=== PATIENT | female | born 1965 | race African-American/Black ===

== ENCOUNTER 2017-01-14 10:29 | Emergency (ER) | payer OTHER ==
[2017-01-14] MEDS ORDERED: fentaNYL PF VIAL 100 MCG/2 ML VIAL IM ONE (11:15)
[2017-01-14 11:37] VITALS: BP 14/69
--- NOTE | 2017-01-14 11:48 | PHYS DOC ---
Past Medical History Past Medical History: Depression, High Cholesterol, Hypertension, Other Additional Past Medical Histor: neuropathy, chronic pain, degenerative disc disease, bone spurs Past Surgical History: Cholecystectomy, Hysterectomy, Tonsillectomy, Tubal ligation Additional Past Surgical Histo: NECK SURGERY Alcohol Use: None Drug Use: None Adult General Chief Complaint Chief Complaint: EARACHE/EAR PAIN HPI HPI Patient is a 51 year old female with history of depression, hypertension high cholesterol who presents today with moderate right ear canal pain that began 2 days ago. Patient denies any fever coughing or congestion. Patient denies swimming. Patient denies hearing loss. Review of Systems Review of Systems Constitutional: Denies fever or chills [] Eyes: Denies change in visual acuity, redness, or eye pain [] HENT: right ear canal pain Respiratory: Denies cough or shortness of breath [] Cardiovascular: No additional information not addressed in HPI [] Musculoskeletal: Denies back pain or joint pain [] Integument: Denies rash or skin lesions [] Neurologic: Denies headache, focal weakness or sensory changes [] Endocrine: Denies polyuria or polydipsia [] Current Medications Current Medications Current Medications Medications (Trade) Dose Ordered Sig/Koko Start Time Stop Time Status Last Admin Dose Admin Fentanyl Citrate (Fentanyl 2ml Vial) 50 mcg 1X ONCE 01/14/17 11:15 01/14/17 11:16 DC 01/14/17 11:42 50 MCG Allergies Allergies Allergies Coded Allergies Type Severity Reaction Last Updated Verified Penicillins Allergy Intermediate 03/09/14 No bupropion Allergy Intermediate 03/09/14 No hydrocodone Allergy Intermediate 03/09/14 No niacin Allergy Intermediate 03/09/14 No Physical Exam Physical Exam Constitutional: Well developed, well nourished, no acute distress, non-toxic appearance. [] HENT: Normocephalic, atraumatic, bilateral external ears normal, oropharynx moist, no oral exudates, nose normal. [] Left ear canal is narrowed. The ear canal is erythematous. The TM appears normal. Tragus is very painful on exam. Eyes: PERRLA, EOMI, conjunctiva normal, no discharge. [] Cardiovascular:Heart rate regular rhythm, no murmur [] Lungs & Thorax: Bilateral breath sounds clear to auscultation [] Skin: Warm, dry, no erythema, no rash. [] Back: No tenderness, no CVA tenderness. [] Extremities: No tenderness, no cyanosis, no clubbing, ROM intact, no edema. [] Neurologic: Alert and oriented X 3, normal motor function, normal sensory function, no focal deficits noted. [] Psychologic: Affect normal, judgement normal, mood normal. [] Current Patient Data Vital Signs Vital Signs Date Time Temp Pulse Resp B/P (MAP) Pulse Ox O2 Delivery O2 Flow Rate FiO2 01/14/17 11:37 98.4 115 18 93 Room Air 98.4 EKG EKG [] Radiology/Procedures Radiology/Procedures [] Course & Med Decision Making Course & Med Decision Making Pertinent Labs and Imaging studies reviewed. (See chart for details) Patient has right otitis externa. Discharged with oflaxacin. Follow-up with primary care doctor in 1-2 weeks. Dragon Disclaimer Dragon Disclaimer This electronic medical record was generated, in whole or in part, using a voice recognition dictation system. Departure Departure Impression: Primary Impression: Otitis externa of right ear Disposition: HOME, SELF-CARE Condition: STABLE Referrals: TONY ROSE MD (PCP) Follow-up with your doctor in 1-2 weeks Patient Instructions: Otitis Externa, [id number] Additional Instructions: You have right ear canal infection. Use the prescribed eardrops as ordered. Follow-up with your doctor next week. Come back to the ED symptoms worsen. Scripts Oxycodone/Apap 5-325 (PERCOCET 5-325 MG TABLET) 1 Each Tablet 1 TAB PO Q4-6HRS Y for PAIN, #10 TAB Prov: MERCEDEZ THOMSON APRN 01/14/17 Ofloxacin (OFLOXACIN) 5 Ml Drops 5 DROP EACH EAR BID, #10 ML Prov: MERCEDEZ THOMSON APRN 01/14/17 Problem Qualifiers Primary Impression: Otitis externa of right ear Otitis externa type: unspecified type Chronicity: acute Qualified Codes: H60.501 - Unspecified acute noninfective otitis externa, right ear MERCEDEZ THOMSON APRN Jan 14, 2017 11:48
[2017-01-14] MEDS ORDERED: OFLO5DRO7 EACH EAR (11:52)
[2017-01-14] MEDS ORDERED: OXYC-323 PO (11:52)
== END 2017-01-14 12:00 | disposition home or self-care (01) ==
LOC: ER 10:29
DX: H60.501 Unspecified acute noninfective otitis externa, right ear (principal); E78.00 Pure hypercholesterolemia, unspecified; F32.9 Major depressive disorder, single episode, unspecified; G89.29 Other chronic pain; I10 Essential (primary) hypertension; G62.9 Polyneuropathy, unspecified; Z90.49 Acquired absence of other specified parts of digestive tract; Z90.710 Acquired absence of both cervix and uterus; Z98.51 Tubal ligation status; Z88.1 Allergy status to other antibiotic agents; Z88.5 Allergy status to narcotic agent; Z88.8 Allergy status to other drugs, medicaments and biological substances
CPT/HCPCS: 96372; 99283; J3010

== ENCOUNTER 2017-03-09 23:26 | Observation (INO) | payer OTHER ==
[~2017-03-09] VITALS: Ht 170.2 cm; Wt 99.6 kg
[~2017-03-09 23:26] MED LIST: CLON1TAB PO; DULO20CA PO; ESOM20CA PO; LISI1TAB7 PO; LOVA20TA2 PO; NAPR500T PO; OFLO5DRO7 EACH EAR; OXYC-323 PO; PRAV40TA2 PO; TRAM100T PO
[2017-03-09] MEDS ORDERED: IV NORMAL SALINE 1000ML BAG 1,000 ML IV SCH (23:30)
[2017-03-09] MEDS ORDERED: ASPIRIN CHEWABLE 81 MG TABLET. PO ONE (23:45)
[2017-03-10 00:07] LABS: BASO # 0.1 x10^3/uL (0.0-0.2); BASO % 1 % (0-3); EOS % 1 % (0-3); HEMATOCRIT 42.3 % (36.0-47.0); HEMOGLOBIN 14.7 g/dL (12.0-15.5); LYMPH # 3.4 x10^3/uL (1.0-4.8); LYMPH % 41 % (24-48); MEAN CORPUSCULAR HEMOGLOBIN 31 pg (25-35); MEAN CORPUSCULAR HGB CONC 35 g/dL (31-37); MEAN CORPUSCULAR VOLUME 90 fL (79-100); MONO % 5 % (0-9); NEUT % 52 % (31-73); PLATELET COUNT 240 x10^3/uL (140-400); RED BLOOD COUNT 4.73 x10^6/uL (3.50-5.40); RED CELL DISTRIBUTION WIDTH 13.6 % (11.5-14.5); WHITE BLOOD COUNT 8.3 x10^3/uL (4.0-11.0)
[2017-03-10 00:18] LABS: INR 1.1 (0.8-1.1); PROTHROMBIN TIME PATIENT 13.4 SEC (11.7-14.0)
[2017-03-10 00:19] LABS: CALCIUM 8.8 mg/dL (8.5-10.1); GFR 70.7; POTASSIUM 3.7 mmol/L (3.5-5.1)
--- NOTE | 2017-03-10 00:22 | PHYS DOC ---
Past Medical History Past Medical History: Anxiety, Depression, Diabetes-Type II, High Cholesterol, Hypertension, Other Additional Past Medical Histor: chronic pain issues-arthritis Past Medical History Anxiety, insomnia Past Surgical History: Cholecystectomy, Hysterectomy, Tonsillectomy, Tubal ligation Additional Past Surgical Histo: neck surgery-cervical (Aug 2016) Smoking: Cigarettes Alcohol Use: None Drug Use: None Adult General Chief Complaint Chief Complaint: CHEST PAIN HPI HPI Patient is a 51 year old female who presents with chest pain. She states she was at home sitting at her table at 2245 PM when she felt chest heaviness in the middle of her chest. It radiated to her right arm. No shortness of air. Pain was an 8 at onset and hasn't 8 at arrival. This morning EMS was called to her home for chest pain at that time however it radiated down her left arm. She declined transport at that time. No recent travel. She has family history of a brother who had significant cardiac event. She has risk factors of tobacco use, hypertension, hyperlipidemia, diabetes. She is followed by [facility] of [facility] Review of Systems Review of Systems Constitutional: Denies fever or chills Eyes: Denies change in visual acuity, redness, or eye pain HENT: Denies nasal congestion or sore throat Respiratory: Denies cough or shortness of breath Cardiovascular: See history of present illness GI: Denies abdominal pain, nausea, vomiting, bloody stools or diarrhea : Denies dysuria or hematuria Musculoskeletal: Denies back pain or joint pain Integument: Denies rash or skin lesions Neurologic: Denies headache, focal weakness or sensory changes Endocrine: Denies polyuria or polydipsia Family History Family History Brother with heart disease Current Medications Current Medications Current Medications Medications (Trade) Dose Ordered Sig/Koko Start Time Stop Time Status Last Admin Dose Admin Aspirin (Children'S Aspirin) 324 mg 1X ONCE 03/09/17 23:45 03/09/17 23:46 DC 03/09/17 23:51 324 MG Nitroglycerin (Nitro-Bid Oint) 1 inch 1X ONCE 03/10/17 00:30 03/10/17 00:31 DC Sodium Chloride 1,000 ml @ 100 mls/hr Q10H 03/09/17 23:30 03/10/17 09:29 03/09/17 23:48 100 MLS/HR Allergies Allergies Allergies Coded Allergies Type Severity Reaction Last Updated Verified Penicillins Allergy Intermediate 03/09/14 No bupropion Allergy Intermediate 03/09/14 No hydrocodone Allergy Intermediate 03/09/14 No niacin Allergy Intermediate 03/09/14 No Physical Exam Physical Exam Constitutional: Well developed, well nourished, no acute distress, non-toxic appearance. HENT: Normocephalic, atraumatic, bilateral external ears normal, oropharynx moist, no oral exudates, nose normal. Eyes: PERRLA, EOMI, conjunctiva normal, no discharge. Neck: Normal range of motion, no tenderness, supple, no stridor. Cardiovascular:Heart rate regular rhythm, no murmur Lungs & Thorax: Bilateral breath sounds clear to auscultation Abdomen: Bowel sounds normal, soft, no tenderness, no masses, no pulsatile masses. Skin: Warm, dry, no erythema, no rash. Back: No tenderness, no CVA tenderness. Extremities: No tenderness, no cyanosis, no clubbing, ROM intact, no edema. Neurologic: Alert and oriented X 3, normal motor function, normal sensory function, no focal deficits noted. [] Psychologic: Affect normal, judgement normal, mood normal. Current Patient Data Vital Signs Vital Signs Date Time Temp Pulse Resp B/P (MAP) Pulse Ox O2 Delivery O2 Flow Rate FiO2 03/09/17 23:29 98.2 98 20 115/58 (77) 92 Room Air 98.2 Lab Values Laboratory Tests Test 03/09/17 23:59 White Blood Count 8.3 x10^3/uL (4.0-11.0) Red Blood Count 4.73 x10^6/uL (3.50-5.40) Hemoglobin 14.7 g/dL (12.0-15.5) Hematocrit 42.3 % (36.0-47.0) Mean Corpuscular Volume 90 fL (79-100) Mean Corpuscular Hemoglobin 31 pg (25-35) Mean Corpuscular Hemoglobin Concent 35 g/dL (31-37) Red Cell Distribution Width 13.6 % (11.5-14.5) Platelet Count 240 x10^3/uL (140-400) Neutrophils (%) (Auto) 52 % (31-73) Lymphocytes (%) (Auto) 41 % (24-48) Monocytes (%) (Auto) 5 % (0-9) Eosinophils (%) (Auto) 1 % (0-3) Basophils (%) (Auto) 1 % (0-3) Neutrophils # (Auto) 4.3 x10^3uL (1.8-7.7) Lymphocytes # (Auto) 3.4 x10^3/uL (1.0-4.8) Monocytes # (Auto) 0.4 x10^3/uL (0.0-1.1) Eosinophils # (Auto) 0.1 x10^3/uL (0.0-0.7) Basophils # (Auto) 0.1 x10^3/uL (0.0-0.2) Prothrombin Time 13.4 SEC (11.7-14.0) Prothrombin Time INR 1.1 (0.8-1.1) D-Dimer (Birgit) 0.30 ug/mlFEU (0.00-0.50) Sodium Level 141 mmol/L (136-145) Potassium Level 3.7 mmol/L (3.5-5.1) Chloride Level 102 mmol/L (98-107) Carbon Dioxide Level 25 mmol/L (21-32) Anion Gap 14 (6-14) Blood Urea Nitrogen 15 mg/dL (7-20) Creatinine 1.0 mg/dL (0.6-1.0) Estimated GFR (Cockcroft-Gault) 70.7 Glucose Level 118 mg/dL (70-99) H Calcium Level 8.8 mg/dL (8.5-10.1) Creatine Kinase 89 U/L (26-192) Creatine Kinase MB (Mass) 1.3 ng/mL (0.0-3.6) Creatine Kinase MB Relative Index 1.5 % (0-4) Troponin I Quantitative < 0.017 ng/mL (0.000-0.055) [id number]-Jhb-M-Type Natriuretic Peptide 12 pg/mL (0-124) Lipase 222 U/L (73-393) Laboratory Tests 03/09/17 23:59 Laboratory Tests 03/09/17 23:59 EKG EKG EKG interpreted by myself at 2331 PM. Normal sinus rhythm, rate 98. Left schulte axis. Nonspecific ST changes. No ST elevation. Radiology/Procedures Radiology/Procedures Chest x-ray interpreted by myself at 0015 AM. Shows normal cardiac silhouette, normal lung jones, no pleural effusions, no pneumothorax, no infiltrates. Course & Med Decision Making Course & Med Decision Making Evaluated patient upon arrival. Aspirin was given 324 mg here. Nitropaste to chest wall. Patient significant number risk factors. Differential diagnosis for chest pain includes but is not limited to: Pericarditis, myocarditis, endocarditis, pneumothorax, pneumonia, aortic dissection, esophageal spasm, esophagitis, peptic ulcer disease, acute coronary syndrome, mediastinitis, Boerhaave syndrome, musculoskeletal chest wall pain, costochondritis, intercostal strain, rib fracture, pulmonary contusion, pneumonitis, pleural effusion, pericardial effusion, pericardial tamponode, and pleurisy. PERC Criteria Assessment: Age > 50: YES HR > 100: YES 02 < 95%: YES H/o DVT/PE: No Recent trauma/surgery: No Hemoptysis No Exogenous Estrogen: No Unilateral Leg swelling: No Pretest probability > 15%: Less than 2% risk of PE. No further work up is necessary MACE Scoring: History: Highly suspicious (2 points); Moderately suspicious (1 point). Slightly suspicious (0 point). EKG: ST segment depression (2 points). Nonspecific repolarization disturbance ( 1 point). normal (0 point) Age: Greater than 65 (2 points), 65-45 (1 point); less than 45 years old (0 points). Risk factors:> 3 risk factors (2 points), 1-2 risk factors (one point), no risk factors (0 point). Troponin: > 2 times normal (2 points), 1-2 times normal (1 point) normal limits (0 point) Total score: ____5__ Score % pts MACE/n MACE Policy 0-3: 32% 1.9% 0.05% Discharge 4-6: 51% 413/3136 13% 1.3% Observation Risk management 7-10: 17% 518/1045 50% 2.8% Observation Treatment, CAGb 0040 AM: Discussion with the patient. She is extremely high risk she initially refused to stay. She did agree to stay with place a nicotine patch on her and gave her her clonazepam dose for tonight. Her daughters were in the room during this discussion. Dr. Antoine, hospitalist was paged at 0045 am and accepted patient. Patient was on cardiac telemetry. She was stable at time of admission. I have spoken with the patient and/or caregivers. I have explained the patient' s condition, diagnosis and treatment plan based on the information available to me at this time. I have answered the patient's and/or caregiver's questions and addressed any concerns. The patient and/or caregivers have as good an understanding of the patient's diagnosis, condition and treatment plan as can be expected at this point. The patient has been stabilized within the capability of the emergency department. The patient will be transported for further care and management or will be moved to an observation or inpatient service. I have communicated with the staff or medical practitioner taking over this patient's care. Dragon Disclaimer Dragon Disclaimer This electronic medical record was generated, in whole or in part, using a voice recognition dictation system. Departure Departure Impression: Primary Impression: Chest pain Additional Impression: Tobacco abuse Disposition: ADMITTED INPATIENT Admitting Physician: Elier Antoine Condition: STABLE Referrals: TONY ROSE MD (PCP) Problem Qualifiers Primary Impression: Chest pain Chest pain type: unspecified Qualified Codes: R07.9 - Chest pain, unspecified ABRAM CHASE MD Mar 10, 2017 00:21
[2017-03-10] MEDS: NITROGLYCERIN OINT 1 GM PACKET. TP ONE ×2 (00:30→00:42)
[2017-03-10 00:33] LABS: CKMB MASS 1.3 ng/mL (0.0-3.6)
[2017-03-10] MEDS ORDERED: ONDANSETRON PF 4 MG/2 ML VIAL. IV PRN ×2 (00:45→08:22)
[2017-03-10] MEDS ORDERED: MORPHINE SULFATE 4 MG/ML DISP.SYRIN. IV PRN (00:45)
[2017-03-10] MEDS ORDERED: clonazePAM 0.5 MG TABLET PO ONE (01:00)
[2017-03-10] MEDS ORDERED: NICOTINE 14MG PATCH. TD ONE (01:00)
[2017-03-10 02:00] VITALS: BP 109/74
[2017-03-10] MEDS ORDERED: AMIT10TA PO (02:42)
[2017-03-10] MEDS ORDERED: IBUP-1060 PO (02:42)
[2017-03-10] MEDS ORDERED: GLIM2TAB2 PO (02:42)
[2017-03-10] MEDS ORDERED: ACET500T68 PO (02:42)
[2017-03-10] MEDS ORDERED: CLON1TAB3 PO (02:42)
[2017-03-10] MEDS ORDERED: LISI1TAB5 PO (02:42)
[2017-03-10] MEDS ORDERED: GLIM1TAB2 PO (02:42)
[2017-03-10] MEDS ORDERED: DULO60CA6 PO (02:42)
[2017-03-10] MEDS ORDERED: PANT40TA5 PO (02:42)
[2017-03-10] MEDS ORDERED: LOVA40TA2 PO (02:42)
[2017-03-10 03:25] VITALS: BP 101/58
[2017-03-10 04:10] VITALS: BP 101/58
--- NOTE | 2017-03-10 06:07 | EKG ---
[facility] [address] [place] [address] Test Date: 2017-03-09 Test Time: 23:31:24 Pat Name: GAURI GUO Department: Room: 258 1 Gender: F [employer]: : 1965 Requested By: ABRAM CHASE Order Number: [id number] Reading MD: Fabrizio Merida Measurements Intervals [place] Rate: 98 P: -41 IA: 148 QRS: 0 QRSD: 88 T: 43 QT: 364 QTc: 467 Interpretive Statements SINUS RHYTHM NON-SPECIFIC ST/T CHANGES Electronically Signed On 03-14-2017 7:16:56 CDT by Fabrizio Merida
[2017-03-10 07:38] VITALS: BP 108/66
--- NOTE | 2017-03-10 07:41 | RAD ---
Chest x-ray Indication: Chest pain Technique: Portable AP upright chest plane from Comparison: Previous study from 09/03/2011 Findings: Heart is normal in size. Lungs are clear. Calcified granuloma in the right lung apex. No pneumothorax or pleural effusion. Visualized bony thorax is within normal limits. Cervical fusion changes noted in the lower cervical spine. Impression: No acute cardiopulmonary process.
[2017-03-10] MEDS ORDERED: NICOTINE 21MG PATCH. TD PRN (08:30)
[2017-03-10] MEDS ORDERED: ACETAMINOPHEN 500 MG TABLET PO PRN ×2 (08:30)
[2017-03-10] MEDS ORDERED: DEXTROSE 50% 25 GM / 50ML DISP.SYRIN. IV PRN (08:30)
[2017-03-10] MEDS ORDERED: IBUPROFEN 400 MG TABLET. PO PRN (08:45)
--- NOTE | 2017-03-10 08:53 | PDOC2 ---
EVANS AYALA GRAVE DIGGER 03/10/17 0853: CARDIAC CONSULT DATE OF CONSULT Date of Consult DATE: 03/10/17 TIME: 08:42 REASON FOR CONSULT Reason for Consult: CP REFERRING PHYSICIAN Referring Physician: Austen SOURCE Source: Chart review, Patient HISTORY OF PRESENT ILLNESS HISTORY OF PRESENT ILLNESS This is a pleasant 51 yo female admitted for complains of chest pain. Reports that last night while sitting up she started having midchest heavy pressure that radiated to her right arm. Reports of nausea but no SOA, palpitations. Denies any frequent dizziness or CP prior to this episode and no REYES. Reports of no CAD, VTE, falls, or any recent injury. Presently no complains. She does have GERD in which she takes PPI but only intermittently and takes high dose ibuprofen almost everyday. She believes this is just all anxiety since her Klonopin was not refilled. She had recent neck fusion and tolerated it well, no prior stress test. Denies any daily ASA. PAST MEDICAL HISTORY Cardiovascular: HTN, Hyperlipidemia Pulmonary: Pneumonia CENTRAL NERVOUS SYSTEM: Other (No pertinent history) GI: GERD Heme/Onc: No pertinent hx Hepatobiliary: No pertinent hx Psych: Anxiety, Depression Musculoskeletal: Osteoarthritis, Other (piriformins syndrome) Rheumatologic: No pertinent hx Infectious disease: No pertinent hx ENT: Other (otitis externa) Renal/: No pertinent hx Endocrine: Diabetes (2) Dermatology: No pertinent hx PAST SURGICAL HISTORY Past Surgical History: Cholecystectomy, Tubal Ligation, Tonsillectomy, Hysterectomy, Other (neck surgery) FAMILY HISTORY Family History: Coronary Artery Disease (brother with premature CAD) SOCIAL HISTORY Smoke: 1 pack per day (>30 yrs) ALCOHOL: none Drugs: None Lives: with Family CURRENT MEDICATIONS CURRENT MEDICATIONS Current Medications Medications (Trade) Dose Ordered Sig/Koko Route PRN Reason Start Time Stop Time Status Last Admin Dose Admin Sodium Chloride 1,000 ml @ 100 mls/hr Q10H IV 03/09/17 23:30 03/10/17 09:29 03/09/17 23:48 Aspirin (Children'S Aspirin) 324 mg 1X ONCE PO 03/09/17 23:45 03/09/17 23:46 DC 03/09/17 23:51 Clonazepam (KlonoPIN) 1 mg 1X ONCE PO 03/10/17 01:00 03/10/17 01:01 DC 03/10/17 00:59 Nicotine (Nicoderm Cq 14mg) 1 patch 1X ONCE TD 03/10/17 01:00 03/10/17 01:01 DC 03/10/17 01:01 ALLERGIES ALLERGIES: Coded Allergies: Penicillins (Verified Allergy, Intermediate, 03/10/17) bupropion (Verified Allergy, Intermediate, 03/10/17) hydrocodone (Verified Allergy, Intermediate, 03/10/17) niacin (Verified Allergy, Intermediate, 03/10/17) ROS Review of System 14 point ROS evaluated with pertinent positives noted per HPI PHYSICAL EXAM General: Alert, Oriented X3, Cooperative, No acute distress HEENT: Atraumatic, Mucous membr. moist/pink Lungs: Clear to auscultation, Normal air movement Heart: Regular rate (SR), Normal S1, Normal S2, No murmurs Abdomen: Soft, No tenderness Extremities: No cyanosis, Other (trace LE edema) Skin: No breakdown, No significant lesion Neuro: Normal speech, Sensation intact Psych/Mental Status: Mental status NL, Mood NL MUSCULOSKELETAL: Osteoarthritic changes both hands VITALS VITALS Vital Signs Date Time Temp Pulse Resp B/P (MAP) Pulse Ox O2 Delivery O2 Flow Rate FiO2 03/10/17 07:38 97.9 88 18 108/66 (80) 97 Room Air 97.9 LABS Lab: Laboratory Tests Test 03/09/17 23:59 03/10/17 07:08 03/10/17 07:40 White Blood Count 8.3 x10^3/uL (4.0-11.0) Red Blood Count 4.73 x10^6/uL (3.50-5.40) Hemoglobin 14.7 g/dL (12.0-15.5) Hematocrit 42.3 % (36.0-47.0) Mean Corpuscular Volume 90 fL (79-100) Mean Corpuscular Hemoglobin 31 pg (25-35) Mean Corpuscular Hemoglobin Concent 35 g/dL (31-37) Red Cell Distribution Width 13.6 % (11.5-14.5) Platelet Count 240 x10^3/uL (140-400) Neutrophils (%) (Auto) 52 % (31-73) Lymphocytes (%) (Auto) 41 % (24-48) Monocytes (%) (Auto) 5 % (0-9) Eosinophils (%) (Auto) 1 % (0-3) Basophils (%) (Auto) 1 % (0-3) Neutrophils # (Auto) 4.3 x10^3uL (1.8-7.7) Lymphocytes # (Auto) 3.4 x10^3/uL (1.0-4.8) Monocytes # (Auto) 0.4 x10^3/uL (0.0-1.1) Eosinophils # (Auto) 0.1 x10^3/uL (0.0-0.7) Basophils # (Auto) 0.1 x10^3/uL (0.0-0.2) Prothrombin Time 13.4 SEC (11.7-14.0) Prothromb Time International Ratio 1.1 (0.8-1.1) D-Dimer (Birgit) 0.30 ug/mlFEU (0.00-0.50) Sodium Level 141 mmol/L (136-145) Potassium Level 3.7 mmol/L (3.5-5.1) Chloride Level 102 mmol/L (98-107) Carbon Dioxide Level 25 mmol/L (21-32) Anion Gap 14 (6-14) Blood Urea Nitrogen 15 mg/dL (7-20) Creatinine 1.0 mg/dL (0.6-1.0) Estimated GFR (Cockcroft-Gault) 70.7 Glucose Level 118 mg/dL (70-99) Calcium Level 8.8 mg/dL (8.5-10.1) Creatine Kinase 89 U/L (26-192) Creatine Kinase MB (Mass) 1.3 ng/mL (0.0-3.6) Creatine Kinase MB Relative Index 1.5 % (0-4) Troponin I Quantitative < 0.017 ng/mL (0.000-0.055) < 0.017 ng/mL (0.000-0.055) [id number]-Type Natriuretic Peptide 12 pg/mL (0-124) Lipase 222 U/L (73-393) Glucose (Fingerstick) 143 mg/dL (70-99) ASSESSMENT/PLAN ASSESSMENT/PLAN 1. Chest pain: typical features 2. HTN: controlled 3. DM2/HLP 4. Recent ACDF: 08/2016 5. Anxiety: has not take klonopin, no refills 6. Tobaccoism 7. GERD with chronic NSAID use Recommendations 1. MPI today, TTE, lipid panel, TSH 2. Smoking cessation 3. ASA for primary prevention 4. PPI and continue home meds (secondary prevention) Problems: FRANKLYN COLEMAN MD 03/10/17 1646: CARDIAC CONSULT ALLERGIES ALLERGIES: Coded Allergies: Penicillins (Verified Allergy, Intermediate, 03/10/17) bupropion (Verified Allergy, Intermediate, 03/10/17) hydrocodone (Verified Allergy, Intermediate, 03/10/17) niacin (Verified Allergy, Intermediate, 03/10/17) ASSESSMENT/PLAN ASSESSMENT/PLAN Patient seen and examined. Agree with RESIDENTIAL MORTGAGE UNDERWRITER's assessment and plan Chest pain with atypical features. Myocardial infarction ruled out. Lexiscan nuclear stress test did not show any significant ischemia. Continue proton pump inhibitors. Thank you for your consultation. Problems: EVANS AYALA APRN Mar 10, 2017 08:53 FRANKLYN COLEMAN MD Mar 10, 2017 16:46
[2017-03-10 08:59] LABS: CHOLESTEROL/HDL RATIO 4.7
[2017-03-10] MEDS ORDERED: clonazePAM 1 MG TABLET PO SCH (09:00)
[2017-03-10] MEDS ORDERED: DULoxetine HCL 30 MG CAPSULE.DR PO SCH (09:00)
[2017-03-10] MEDS ORDERED: PANTOPRAZOLE 40 MG TABLET.DR. PO SCH (09:00)
[2017-03-10] MEDS ORDERED: GLIMEPIRIDE 2 MG TABLET. PO SCH ×2 (09:00→17:00)
[2017-03-10] MEDS ORDERED: NON FORMULARY ITEM (Lisinopril/Hydrochlorothiazide (Lisinopril-Hctz 20-12.5 Mg Tab) 1 TAB) PO SCH (09:00)
[2017-03-10] MEDS ORDERED: hydroCHLOROthiazide 12.5 MG CAPSULE PO SCH (09:00)
[2017-03-10] MEDS ORDERED: LISINOPRIL 20 MG TABLET PO SCH (09:00)
--- NOTE | 2017-03-10 09:53 | PDOC1 ---
History and Physical Date of Admission Date of Admission DATE: 03/10/17 TIME: 09:48 Identification/Chief Complaint Chief Complaint chest heaviness Problems: Source Source: Caregiver, Chart review, Patient History of Present Illness History of Present Illness 51 y.o obese [place] [facility] [place], DM on OHA, dyslipidemia, no known personal hx CAD but CAD in the borther comes in with chest heaviness at 11 : 30 PM, midsternal, some radiation the left arm , no identifiable precipitating or alleviating factors. CP free now, no reports of soa or diaphoresis but does claim feeling weak, She also notes insomnia, takes elavil at qhs,. Seen by cards, planned for echo and MPI VS ok Trops and EKg reassuring Past Medical History Cardiovascular: HTN, Hyperlipidemia Pulmonary: Pneumonia CENTRAL NERVOUS SYSTEM: Other (No pertinent history) GI: GERD Heme/Onc: No pertinent hx Hepatobiliary: No pertinent hx Psych: Anxiety, Depression Musculoskeletal: Osteoarthritis, Other (piriformins syndrome) Rheumatologic: No pertinent hx Infectious disease: No pertinent hx ENT: Other (otitis externa) Renal/: No pertinent hx Endocrine: Diabetes (2) Dermatology: No pertinent hx Past Surgical History Past Surgical History: Cholecystectomy, Tubal Ligation, Tonsillectomy, Hysterectomy, Other (neck surgery) Family History Family History: Coronary Artery Disease (brother with premature CAD), Heart Disease Social History Smoke: No (>30 yrs) ALCOHOL: none Drugs: None Current Problem List Problem List Problems Medical Problems: (1) Chest pain Status: Acute (2) Tobacco abuse Status: Acute Problems: Current Medications Current Medications Current Medications Sodium Chloride 1,000 ml @ 100 mls/hr Q10H IV Last administered on 03/09/17 23:48; Start 03/09/17 at 23:30; Stop 03/10/17 at 09:29; Status DC Aspirin (Children'S Aspirin) 324 mg 1X ONCE PO Last administered on 03/09/17 23:51; Start 03/09/17 at 23:45; Stop 03/09/17 at 23:46; Status DC Nitroglycerin (Nitro-Bid Oint) 1 inch 1X ONCE TP ; Start 03/10/17 at 00:30; Stop 03/10/17 at 00:31; Status DC Clonazepam (KlonoPIN) 1 mg 1X ONCE PO Last administered on 03/10/17 00:59; Start 03/10/17 at 01:00; Stop 03/10/17 at 01:01; Status DC Nicotine (Nicoderm Cq 14mg) 1 patch 1X ONCE TD Last administered on 03/10/17 01:01; Start 03/10/17 at 01:00; Stop 03/10/17 at 01:01; Status DC Ondansetron HCl (Zofran) 4 mg PRN Q8HRS PRN IV NAUSEA/VOMITING; Start 03/10/17 at 00:45; Stop 03/10/17 at 08:24; Status DC Morphine Sulfate 2 mg PRN Q2HR PRN IV PAIN; Start 03/10/17 at 00:45; Stop 03/11 at 00:44 Ondansetron HCl (Zofran) 4 mg PRN Q6HRS PRN IV NAUSEA/VOMITING; Start 03/10/17 at 08:22; Stop 03/11/17 at 08:21 Acetaminophen (Tylenol) 500 mg PRN Q6HRS PRN PO MILD PAIN / TEMP; Start at 08:30 Nicotine (Nicoderm Cq 21mg) 1 patch PRN DAILY PRN TD SMOKING CESSATION; Start 03/10/17 at 08:30 Insulin Aspart (NovoLOG) 0-9 UNITS TIDWMEALS SQ ; Start 03/10/17 at 12:00 Dextrose (Dextrose 50%-Water Syringe) 12.5 gm PRN Q15MIN PRN IV SEE COMMENTS; Start 03/10/17 at 08:30 Acetaminophen (Tylenol) 1,000 mg PRN Q6HRS PRN PO PAIN; Start 03/10/17 at 08:30 Amitriptyline HCl (Elavil) 10 mg QHS PO ; Start 03/10/17 at 21:00 Clonazepam (KlonoPIN) 1 mg BID PO ; Start 03/10/17 at 09:00 Glimepiride (Amaryl) 2 mg DAILYWBKFT PO ; Start 03/10/17 at 09:00 Pantoprazole Sodium (Protonix) 40 mg DAILYAC PO ; Start 03/10/17 at 09:00 Duloxetine HCl (Cymbalta) 60 mg DAILY PO ; Start 03/10/17 at 09:00 Glimepiride (Amaryl) 1 mg DAILYWSUP PO ; Start 03/10/17 at 17:00 Ibuprofen (Motrin) 800 mg PRN Q6HRS PRN PO INFLAMMATION; Start 03/10/17 at 08: 45 Non-Formulary Medication 1 tab DAILY PO ; Start 03/10/17 at 09:00; Status UNV Atorvastatin Calcium (Lipitor) 10 mg QHS PO ; Start 03/10/17 at 21:00 Lisinopril (Prinivil) 20 mg DAILY PO ; Start 03/10/17 at 09:00 Hydrochlorothiazide (Microzide) 12.5 mg DAILY PO ; Start 03/10/17 at 09:00 Aspirin (Ecotrin) 81 mg DAILYWBKFT PO ; Start 03/10/17 at 10:00 Active Scripts Active Reported Acetaminophen 500 Mg Tablet 1,000 Mg PO PRN Q6HRS PRN Ibuprofen 800 Mg Tablet 800 Mg PO PRN Q6HRS PRN Pantoprazole Sodium 40 Mg Tablet. 40 Mg PO DAILY Clonazepam 1 Mg Tablet 1 Tab PO BID Amitriptyline Hcl 10 Mg Tablet Tab PO QHS Lovastatin 40 Mg Tablet 40 Mg PO HS Glimepiride 1 Mg Tablet 1 Mg PO DAILYWSUP Glimepiride 2 Mg Tablet 2 Mg PO DAILYWBKFT Lisinopril-Hctz 20-12.5 Mg Tab (Lisinopril/Hydrochlorothiazide) 1 Each Tablet 1 Tab PO DAILY Cymbalta (Duloxetine Hcl) 60 Mg Capsule. 2 Cap PO DAILY Allergies Allergies: Coded Allergies: Penicillins (Verified Allergy, Intermediate, 03/10/17) bupropion (Verified Allergy, Intermediate, 03/10/17) hydrocodone (Verified Allergy, Intermediate, 03/10/17) niacin (Verified Allergy, Intermediate, 03/10/17) ROS Review of System as per HPI, insomnia, weakness Physical Exam General: Alert, Oriented X3, Cooperative, No acute distress HEENT: Atraumatic, PERRLA, EOMI Lungs: Clear to auscultation, Normal air movement Heart: S1S2, RRR, no thrills, no rubs, no gallops Cardiovascular: S1, S2 Breasts: Normal, Rt breast nml w/o mass, Lt breast nml w/o mass, Nipples normal Abdomen: Normal bowel sounds, Soft, No tenderness, No hepatosplenomegaly, No masses Male Genitals Exam: normal genitalia, normal prostate Rectal Exam: not examined Extremities: No clubbing, No cyanosis, No edema, Normal pulses, No tenderness/ swelling Skin: No rashes, No breakdown, No significant lesion Neuro: Normal gait, Normal speech, Strength at 5/5 X4 ext, Normal tone, Sensation intact, Cranial nerves 3-12 NL, Reflexes 2+ Psych/Mental Status: Mental status NL, Mood NL Vitals Vitals Vital Signs Date Time Temp Pulse Resp B/P (MAP) Pulse Ox O2 Delivery O2 Flow Rate FiO2 03/10/17 07:38 97.9 88 18 108/66 (80) 97 Room Air 97.9 Labs Labs Laboratory Tests Test 03/09/17 23:59 03/10/17 07:08 03/10/17 07:40 White Blood Count 8.3 x10^3/uL (4.0-11.0) Red Blood Count 4.73 x10^6/uL (3.50-5.40) Hemoglobin 14.7 g/dL (12.0-15.5) Hematocrit 42.3 % (36.0-47.0) Mean Corpuscular Volume 90 fL (79-100) Mean Corpuscular Hemoglobin 31 pg (25-35) Mean Corpuscular Hemoglobin Concent 35 g/dL (31-37) Red Cell Distribution Width 13.6 % (11.5-14.5) Platelet Count 240 x10^3/uL (140-400) Neutrophils (%) (Auto) 52 % (31-73) Lymphocytes (%) (Auto) 41 % (24-48) Monocytes (%) (Auto) 5 % (0-9) Eosinophils (%) (Auto) 1 % (0-3) Basophils (%) (Auto) 1 % (0-3) Neutrophils # (Auto) 4.3 x10^3uL (1.8-7.7) Lymphocytes # (Auto) 3.4 x10^3/uL (1.0-4.8) Monocytes # (Auto) 0.4 x10^3/uL (0.0-1.1) Eosinophils # (Auto) 0.1 x10^3/uL (0.0-0.7) Basophils # (Auto) 0.1 x10^3/uL (0.0-0.2) Prothrombin Time 13.4 SEC (11.7-14.0) Prothromb Time International Ratio 1.1 (0.8-1.1) D-Dimer (Birgit) 0.30 ug/mlFEU (0.00-0.50) Sodium Level 141 mmol/L (136-145) Potassium Level 3.7 mmol/L (3.5-5.1) Chloride Level 102 mmol/L (98-107) Carbon Dioxide Level 25 mmol/L (21-32) Anion Gap 14 (6-14) Blood Urea Nitrogen 15 mg/dL (7-20) Creatinine 1.0 mg/dL (0.6-1.0) Estimated GFR (Cockcroft-Gault) 70.7 Glucose Level 118 mg/dL (70-99) Calcium Level 8.8 mg/dL (8.5-10.1) Creatine Kinase 89 U/L (26-192) Creatine Kinase MB (Mass) 1.3 ng/mL (0.0-3.6) Creatine Kinase MB Relative Index 1.5 % (0-4) Troponin I Quantitative < 0.017 ng/mL (0.000-0.055) < 0.017 ng/mL (0.000-0.055) EC-Jcr-Q-Type Natriuretic Peptide 12 pg/mL (0-124) Lipase 222 U/L (73-393) Triglycerides Level 167 mg/dL (0-150) Cholesterol Level 140 mg/dL (0-200) LDL Cholesterol, Calculated 77 mg/dL (0-100) VLDL Cholesterol, Calculated 33 mg/dL (0-40) Non-HDL Cholesterol Calculated 110 mg/dL (0-129) HDL Cholesterol 30 mg/dL (40-60) Cholesterol/HDL Ratio 4.7 Thyroid Stimulating Hormone (TSH) 1.384 uIU/mL (0.358-3.74) Glucose (Fingerstick) 143 mg/dL (70-99) Laboratory Tests Test 03/09/17 23:59 03/10/17 07:08 03/10/17 07:40 White Blood Count 8.3 x10^3/uL (4.0-11.0) Red Blood Count 4.73 x10^6/uL (3.50-5.40) Hemoglobin 14.7 g/dL (12.0-15.5) Hematocrit 42.3 % (36.0-47.0) Mean Corpuscular Volume 90 fL (79-100) Mean Corpuscular Hemoglobin 31 pg (25-35) Mean Corpuscular Hemoglobin Concent 35 g/dL (31-37) Red Cell Distribution Width 13.6 % (11.5-14.5) Platelet Count 240 x10^3/uL (140-400) Neutrophils (%) (Auto) 52 % (31-73) Lymphocytes (%) (Auto) 41 % (24-48) Monocytes (%) (Auto) 5 % (0-9) Eosinophils (%) (Auto) 1 % (0-3) Basophils (%) (Auto) 1 % (0-3) Neutrophils # (Auto) 4.3 x10^3uL (1.8-7.7) Lymphocytes # (Auto) 3.4 x10^3/uL (1.0-4.8) Monocytes # (Auto) 0.4 x10^3/uL (0.0-1.1) Eosinophils # (Auto) 0.1 x10^3/uL (0.0-0.7) Basophils # (Auto) 0.1 x10^3/uL (0.0-0.2) Prothrombin Time 13.4 SEC (11.7-14.0) Prothromb Time International Ratio 1.1 (0.8-1.1) D-Dimer (Birgit) 0.30 ug/mlFEU (0.00-0.50) Sodium Level 141 mmol/L (136-145) Potassium Level 3.7 mmol/L (3.5-5.1) Chloride Level 102 mmol/L (98-107) Carbon Dioxide Level 25 mmol/L (21-32) Anion Gap 14 (6-14) Blood Urea Nitrogen 15 mg/dL (7-20) Creatinine 1.0 mg/dL (0.6-1.0) Estimated GFR (Cockcroft-Gault) 70.7 Glucose Level 118 mg/dL (70-99) Calcium Level 8.8 mg/dL (8.5-10.1) Creatine Kinase 89 U/L (26-192) Creatine Kinase MB (Mass) 1.3 ng/mL (0.0-3.6) Creatine Kinase MB Relative Index 1.5 % (0-4) Troponin I Quantitative < 0.017 ng/mL (0.000-0.055) < 0.017 ng/mL (0.000-0.055) NS-Lto-H-Type Natriuretic Peptide 12 pg/mL (0-124) Lipase 222 U/L (73-393) Triglycerides Level 167 mg/dL (0-150) Cholesterol Level 140 mg/dL (0-200) LDL Cholesterol, Calculated 77 mg/dL (0-100) VLDL Cholesterol, Calculated 33 mg/dL (0-40) Non-HDL Cholesterol Calculated 110 mg/dL (0-129) HDL Cholesterol 30 mg/dL (40-60) Cholesterol/HDL Ratio 4.7 Thyroid Stimulating Hormone (TSH) 1.384 uIU/mL (0.358-3.74) Glucose (Fingerstick) 143 mg/dL (70-99) VTE Prophylaxis Ordered VTE Prophylaxis Devices: Yes VTE Pharmacological Prophylaxi: Yes Assessment/Plan Assessment/Plan 1. Chest heaviness 2. HTN, DM 2 on OHA, dyslipidemia 3. Obesity BMI 34 4. GEn weakness PLAN Admit cards consulted Echo and MPI MAy check TSH given weakness complaints Hgba1c Hiren Lucia and pt JUDD HART MD Mar 10, 2017 09:53
[2017-03-10] MEDS ORDERED: ASPIRIN ENTERIC COATED 81 MG TABLET.DR. PO SCH (10:00)
[2017-03-10 10:10] VITALS: BP 108/72
[2017-03-10] MEDS: INSULIN ASPART 300 UNITS/3 ML INSULN.PEN SQ SCH ×2 (12:00→17:00)
[2017-03-10] MEDS ORDERED: REGADENOSON 0.4 MG/5 ML DISP.SYRIN. IV ONE (12:45)
--- NOTE | 2017-03-10 14:42 | RAD ---
APPROVED REPORT Test Type: Pharmacological Stress Nurse/Tech: Chiara Bryant R.N. Test Indications: chest pain Cardiac History: Hypertension, Family history, smoker Medications: See Electronic Medical Record Medical History: See Electronic Medical Record Resting ECG: NSR Resting Heart Rate: 90 bpm Resting Blood Pressure: 106/63mmHg Pretest Chest Pain: No chest pain Nurse/Tech Notes S1S2, lungs sound clear Consent: The procedure was explained to the patient in lay terms. Informed consent was witnessed. Jairon eout was entered into [facility]. History and Stress Test performed by Chiara Bryant R.N. Pharm. Details Pharmacologic stress testing was performed using 0.4mg per 5ml of regadenoson given intravenously ove r 7-10 seconds. Stress Symptoms Dyspnea POST EXERCISE Reason for Termination: Infusion complete Max HR: 109 bpm Max Blood Pressure: 114/63mmHg Blood Pressure response to exercise: Normal blood pressure response during stress. Chest Pain: No. Arrhythmia: No. ST Change: No. INTERPRETATION Stress EKG Conclusion: The resting EKG shows normal sinus rhythm and nonspecific ST changes. The stress EKG shows no significant changes from baseline. No EKG evidence of stress induced ischemia. Imaging Protocol IMAGE PROTOCOL: Rest Tc-99m/stress Tc-99m 1 day Rest: Stress: Viability: Radiopharm.Tc99m [id number] Sestamibi Jqbs51qEl 32.4mCi Duration 15min. 12min. Img Date 03/10/2017 03/10/2017 Inj-Img Xztf98acy. 60min. STRESS DATA End Diast. Vol.72.0mlAv. Heart Qxry366.0bpm End Syst. Vol.24.0mlCO Index BSA0.0L/min Myocardial Oedz661.0gEject. Jxhhwojh86.0% Stress Rates Pk. Fill Rate4.44EDV/secLVtime Pk. Fill 157.80msec Pk. Empty Rate4.68ESV/secLVtime Pk. Scbby691.82msec 07/19 Pk. Fill0.86EDV/sec Stress Scores Regional WT3.00Summed WT27.00 Regional WM0.00Summed WM4.00 LV Perfusion The stress scans have no significant defects. The rest scans have no significant defects. Nuclear imaging shows no reversible ischemia or infarct. Wall Motion Normal LV systolic function with an ejection fraction of 67%. LV Perf. Quant 17 Seg. SSS0.00 17 Seg. SRS1.00 17 Seg. SDS0.00 Stress Defect Extent (% LAD)0.00Rest Defect Extent (% LAD)3.10Rev. Defect Extent (% LAD)0.00 Stress Defect Extent (% LCX) 0.00Rest Defect Extent (% LCX)0.00Rev. Defect Extent (% LCX)0.00 Stress Defect Extent (% RCA)0.00Rest Defect Extent (% RCA)0.00Rev. Defect Extent (% RCA)0.00 Stress Defect Extent (% JULIAN)0.00Rest Defect Extent (% JULIAN)1.70Rev. Defect Extent (% JULIAN)0.00 Conclusion 1. No EKG evidence of stress induced ischemia. 2. Nuclear imaging shows no reversible ischemia or infarct. 3. Normal LV systolic function with an ejection fraction of 67%. 4. Low risk Lexiscan stress test.
[2017-03-10 14:54] VITALS: BP 107/71
--- NOTE | 2017-03-10 16:48 | CARD ---
APPROVED REPORT EXAM: Two-dimensional and M-mode echocardiogram with Doppler and color Doppler. Other Information Quality : GoodHR: 105bpm Rhythm : Bradycardia INDICATION Chest Pain RISK FACTORS Obesity 2D DIMENSIONS RVDd3.1 (2.9-3.5cm)Left Atrium(2D)3.0 (1.6-4.0cm) IVSd1.2 (0.7-1.1cm)Aortic Root(2D)2.9 (2.0-3.7cm) LVDd4.7 (3.9-5.9cm)LVOT Diameter2.2 (1.8-2.4cm) PWd1.2 (0.7-1.1cm)LVDs3.3 (2.5-4.0cm) FS (%) 29.5 %SV57.6 ml LVEF(%)56.5 (>50%) Aortic Valve AoV Peak Wilian.112.9cm/sAoV VTI13.4cm AO Peak GR.5.1mmHgLVOT Peak Wilian.104.5cm/s AO Mean GR.3mmHgAVA (VMAX)3.57cm2 Mitral Valve MV E Axkkibfn69.2cm/sMV E Peak Gr.5mmHg MV DECEL [id number] A Zkryxxub825.6cm/s MV E Mean Gr.2mmHgE/A Ratio0.5 MV A Ypuazfns306st Pulmonary Valve PV Peak Ikuxsrtp590.0cm/s Pulmonary Vein S1 Auafyjvb53.8cm/sD2 Xwfmeziw04.4cm/s PVa [id number] LEFT VENTRICLE The left ventricle is normal size. There is mild concentric left ventricular hypertrophy. The left ve ntricular systolic function is normal. The Ejection Fraction is 55-60%. There is normal LV segmental wall motion. Transmitral Doppler flow pattern is Grade I-abnormal relaxation pattern. RIGHT VENTRICLE The right ventricle is normal size. There is normal right ventricular wall thickness. The right ventr icular systolic function is normal. ATRIA The left atrium size is normal. The right atrium size is normal. The interatrial septum is intact wit h no evidence for an atrial septal defect or patent foramen ovale as noted on 2-D or Doppler imaging. AORTIC VALVE The aortic valve is not well visualized but appears mildly calcified and opens adequately. Doppler an d Color Flow revealed no significant aortic regurgitation. There is no significant aortic valvular st enosis. MITRAL VALVE The mitral valve leaflets are thickened. There is no evidence of mitral valve prolapse. There is no m itral valve stenosis. Doppler and Color Flow revealed no mitral valve regurgitation noted. TRICUSPID VALVE Doppler and Color Flow revealed no tricuspid valve regurgitation noted. Unable to determine pulmonary artery pressure at exam time. PULMONIC VALVE The pulmonic valve is not well visualized but appears to open adequately. Doppler and Color Flow reve aled no pulmonic valvular regurgitation. There is no pulmonic valvular stenosis by spectral Doppler. GREAT VESSELS The aortic root is normal in size. The ascending aorta is normal in size. The pulmonary artery is nor mal. The IVC is normal in size and collapses >50% with inspiration. PERICARDIAL EFFUSION There is no evidence of significant pericardial effusion. Critical Notification Critical Value: No <Conclusion> The left ventricular systolic function is normal. The Ejection Fraction is 55-60%. There is normal LV segmental wall motion. Transmitral Doppler flow pattern is Grade I-abnormal relaxation pattern. There is no evidence of significant pericardial effusion.
--- NOTE | 2017-03-10 17:25 | PDOC3 ---
Discharge Summary Visit Information Date of Admission: Mar 09, 2017 Date of Discharge: Mar 10, 2017 Admitting Diagnosis Comment: non cardiac CP Final Diagnosis Problems Medical Problems: (1) Chest pain Status: Acute (2) Tobacco abuse Status: Acute Brief Hospital Course Allergies Allergies Coded Allergies Type Severity Reaction Last Updated Verified Penicillins Allergy Intermediate 03/10/17 Yes bupropion Allergy Intermediate 03/10/17 Yes hydrocodone Allergy Intermediate 03/10/17 Yes niacin Allergy Intermediate 03/10/17 Yes Vital Signs Vital Signs Date Time Temp Pulse Resp B/P (MAP) Pulse Ox O2 Delivery O2 Flow Rate FiO2 03/10/17 14:54 98.3 101 19 107/71 (83) 95 Room Air 98.3 Lab Results Laboratory Tests Test 03/09/17 23:59 03/10/17 07:08 03/10/17 07:40 03/10/17 11:39 White Blood Count 8.3 x10^3/uL (4.0-11.0) Red Blood Count 4.73 x10^6/uL (3.50-5.40) Hemoglobin 14.7 g/dL (12.0-15.5) Hematocrit 42.3 % (36.0-47.0) Mean Corpuscular Volume 90 fL (79-100) Mean Corpuscular Hemoglobin 31 pg (25-35) Mean Corpuscular Hemoglobin Concent 35 g/dL (31-37) Red Cell Distribution Width 13.6 % (11.5-14.5) Platelet Count 240 x10^3/uL (140-400) Neutrophils (%) (Auto) 52 % (31-73) Lymphocytes (%) (Auto) 41 % (24-48) Monocytes (%) (Auto) 5 % (0-9) Eosinophils (%) (Auto) 1 % (0-3) Basophils (%) (Auto) 1 % (0-3) Neutrophils # (Auto) 4.3 x10^3uL (1.8-7.7) Lymphocytes # (Auto) 3.4 x10^3/uL (1.0-4.8) Monocytes # (Auto) 0.4 x10^3/uL (0.0-1.1) Eosinophils # (Auto) 0.1 x10^3/uL (0.0-0.7) Basophils # (Auto) 0.1 x10^3/uL (0.0-0.2) Prothrombin Time 13.4 SEC (11.7-14.0) Prothromb Time International Ratio 1.1 (0.8-1.1) D-Dimer (Birgit) 0.30 ug/mlFEU (0.00-0.50) Sodium Level 141 mmol/L (136-145) Potassium Level 3.7 mmol/L (3.5-5.1) Chloride Level 102 mmol/L (98-107) Carbon Dioxide Level 25 mmol/L (21-32) Anion Gap 14 (6-14) Blood Urea Nitrogen 15 mg/dL (7-20) Creatinine 1.0 mg/dL (0.6-1.0) Estimated GFR (Cockcroft-Gault) 70.7 Glucose Level 118 mg/dL (70-99) Calcium Level 8.8 mg/dL (8.5-10.1) Creatine Kinase 89 U/L (26-192) Creatine Kinase MB (Mass) 1.3 ng/mL (0.0-3.6) Creatine Kinase MB Relative Index 1.5 % (0-4) Troponin I Quantitative < 0.017 ng/mL (0.000-0.055) < 0.017 ng/mL (0.000-0.055) DB-Dcc-Y-Type Natriuretic Peptide 12 pg/mL (0-124) Lipase 222 U/L (73-393) Triglycerides Level 167 mg/dL (0-150) Cholesterol Level 140 mg/dL (0-200) LDL Cholesterol, Calculated 77 mg/dL (0-100) VLDL Cholesterol, Calculated 33 mg/dL (0-40) Non-HDL Cholesterol Calculated 110 mg/dL (0-129) HDL Cholesterol 30 mg/dL (40-60) Cholesterol/HDL Ratio 4.7 Thyroid Stimulating Hormone (TSH) 1.384 uIU/mL (0.358-3.74) Glucose (Fingerstick) 143 mg/dL (70-99) 132 mg/dL (70-99) Test 03/10/17 13:20 03/10/17 16:38 Troponin I Quantitative < 0.017 ng/mL (0.000-0.055) Glucose (Fingerstick) 220 mg/dL (70-99) Laboratory Tests Test 03/09/17 23:59 03/10/17 07:08 03/10/17 07:40 03/10/17 11:39 White Blood Count 8.3 x10^3/uL (4.0-11.0) Red Blood Count 4.73 x10^6/uL (3.50-5.40) Hemoglobin 14.7 g/dL (12.0-15.5) Hematocrit 42.3 % (36.0-47.0) Mean Corpuscular Volume 90 fL (79-100) Mean Corpuscular Hemoglobin 31 pg (25-35) Mean Corpuscular Hemoglobin Concent 35 g/dL (31-37) Red Cell Distribution Width 13.6 % (11.5-14.5) Platelet Count 240 x10^3/uL (140-400) Neutrophils (%) (Auto) 52 % (31-73) Lymphocytes (%) (Auto) 41 % (24-48) Monocytes (%) (Auto) 5 % (0-9) Eosinophils (%) (Auto) 1 % (0-3) Basophils (%) (Auto) 1 % (0-3) Neutrophils # (Auto) 4.3 x10^3uL (1.8-7.7) Lymphocytes # (Auto) 3.4 x10^3/uL (1.0-4.8) Monocytes # (Auto) 0.4 x10^3/uL (0.0-1.1) Eosinophils # (Auto) 0.1 x10^3/uL (0.0-0.7) Basophils # (Auto) 0.1 x10^3/uL (0.0-0.2) Prothrombin Time 13.4 SEC (11.7-14.0) Prothromb Time International Ratio 1.1 (0.8-1.1) D-Dimer (Birgit) 0.30 ug/mlFEU (0.00-0.50) Sodium Level 141 mmol/L (136-145) Potassium Level 3.7 mmol/L (3.5-5.1) Chloride Level 102 mmol/L (98-107) Carbon Dioxide Level 25 mmol/L (21-32) Anion Gap 14 (6-14) Blood Urea Nitrogen 15 mg/dL (7-20) Creatinine 1.0 mg/dL (0.6-1.0) Estimated GFR (Cockcroft-Gault) 70.7 Glucose Level 118 mg/dL (70-99) Calcium Level 8.8 mg/dL (8.5-10.1) Creatine Kinase 89 U/L (26-192) Creatine Kinase MB (Mass) 1.3 ng/mL (0.0-3.6) Creatine Kinase MB Relative Index 1.5 % (0-4) Troponin I Quantitative < 0.017 ng/mL (0.000-0.055) < 0.017 ng/mL (0.000-0.055) PC-Yed-E-Type Natriuretic Peptide 12 pg/mL (0-124) Lipase 222 U/L (73-393) Triglycerides Level 167 mg/dL (0-150) Cholesterol Level 140 mg/dL (0-200) LDL Cholesterol, Calculated 77 mg/dL (0-100) VLDL Cholesterol, Calculated 33 mg/dL (0-40) Non-HDL Cholesterol Calculated 110 mg/dL (0-129) HDL Cholesterol 30 mg/dL (40-60) Cholesterol/HDL Ratio 4.7 Thyroid Stimulating Hormone (TSH) 1.384 uIU/mL (0.358-3.74) Glucose (Fingerstick) 143 mg/dL (70-99) 132 mg/dL (70-99) Test 03/10/17 13:20 03/10/17 16:38 Troponin I Quantitative < 0.017 ng/mL (0.000-0.055) Glucose (Fingerstick) 220 mg/dL (70-99) Brief Hospital Course Ms. Sagastume is a 51 old [sex] who presented with [ ]History of Present Illness 51 y.o obese female who follows at [facility] [place], hx HTN, DM on OHA, dyslipidemia, no known personal hx CAD but CAD in the borther comes in with chest heaviness at 11 : 30 PM, midsternal, some radiation the left arm , no identifiable precipitating or alleviating factors. CP free now, no reports of soa or diaphoresis but does claim feeling weak, She also notes insomnia, takes elavil at [facility],. Seen by cards, planned for echo and MPI VS ok Trops and EKg reassuring Course: cards eval neg, Cleared from cards to go home, NO new meds. stayed only overnight Discharge Information Condition at Discharge: Improved, Stable Disposition/Orders: D/C to Home Scheduled Amitriptyline Hcl (Amitriptyline Hcl), TAB PO QHS, (Reported) Clonazepam (Clonazepam), 1 TAB PO BID, (Reported) Duloxetine Hcl (Cymbalta), 2 CAP PO DAILY, (Reported) Glimepiride (Glimepiride), 2 MG PO DAILYWBKFT, (Reported) Glimepiride (Glimepiride), 1 MG PO DAILYWSUP, (Reported) Lisinopril/Hydrochlorothiazide (Lisinopril-Hctz 20-12.5 Mg Tab), 1 TAB PO DAILY, (Reported) Lovastatin (Lovastatin), 40 MG PO HS, (Reported) Pantoprazole Sodium (Pantoprazole Sodium), 40 MG PO DAILY, (Reported) Scheduled PRN Acetaminophen (Acetaminophen), 1,000 MG PO PRN Q6HRS PRN for PAIN, (Reported) Ibuprofen (Ibuprofen), 800 MG PO PRN Q6HRS PRN for INFLAMMATION, (Reported) JUDD HART MD Mar 10, 2017 17:25
[2017-03-10] MEDS ORDERED: ATORVASTATIN CALCIUM 10 MG TABLET. PO SCH (21:00)
[2017-03-10] MEDS ORDERED: AMITRIPTYLINE HCL 10 MG TABLET. PO SCH (21:00)
== END 2017-03-10 18:37 | disposition home or self-care (01) ==
LOC: ER 23:26 → 2 SOUTH 03-10 00:45
PROVIDERS: ADMIT Internal Medicine; ATTEND Internal Medicine
DX: R07.2 Precordial pain (principal); I10 Essential (primary) hypertension; E11.9 Type 2 diabetes mellitus without complications; E78.5 Hyperlipidemia, unspecified; F41.9 Anxiety disorder, unspecified; F32.9 Major depressive disorder, single episode, unspecified; M19.90 Unspecified osteoarthritis, unspecified site; E66.9 Obesity, unspecified; G47.00 Insomnia, unspecified; F17.210 Nicotine dependence, cigarettes, uncomplicated; K21.9 Gastro-esophageal reflux disease without esophagitis; E78.00 Pure hypercholesterolemia, unspecified; Z68.34 Body mass index [BMI] 34.0-34.9, adult; Z98.1 Arthrodesis status; Z90.710 Acquired absence of both cervix and uterus; Z79.1 Long term (current) use of non-steroidal anti-inflammatories (NSAID); Z82.49 Family history of ischemic heart disease and other diseases of the circulatory system
CPT/HCPCS: 36415; 71010; 78452; 80048; 80061; 82553; 82962; 83036; 83690; 83880; 84443; 84484; 85025; 85379; 85610; 93005; 93017; 93306; 96360; 96361; 99285; 99406; A9500; G0378; J1815; J2785; J7030; 96374; 96375; 96376; G0379

== ENCOUNTER 2017-09-17 05:36 | Emergency (ER) | payer OTHER ==
[2017-09-17] MEDS: diphenhydrAMINE HCL 25 MG CAPSULE PO (06:23)
[2017-09-17] MEDS: DEXAMETHASONE 4 MG TABLET PO (06:24)
[2017-09-17] MEDS: FAMOTIDINE 20 MG TABLET. PO (06:24)
== END 2017-09-17 06:45 | disposition home or self-care (01) ==
LOC: ER 05:36
DX: L98.8 Other specified disorders of the skin and subcutaneous tissue (principal); T36.8X5A Adverse effect of other systemic antibiotics, initial encounter; F41.9 Anxiety disorder, unspecified; F32.9 Major depressive disorder, single episode, unspecified; E11.9 Type 2 diabetes mellitus without complications; G89.29 Other chronic pain; M19.90 Unspecified osteoarthritis, unspecified site; Z90.49 Acquired absence of other specified parts of digestive tract; Z90.710 Acquired absence of both cervix and uterus; Z98.51 Tubal ligation status; Z88.0 Allergy status to penicillin; Z88.5 Allergy status to narcotic agent; Z88.8 Allergy status to other drugs, medicaments and biological substances; Y92.89 Other specified places as the place of occurrence of the external cause
CPT/HCPCS: 99284; J8540; Q0163

== ENCOUNTER 2018-09-10 02:19 | Emergency (ER) | payer OTHER ==
[~2018-09-10] VITALS: Ht 170.2 cm; Wt 102.5 kg
[~2018-09-10 02:19] MED LIST changes: +ACET500T68 PO; +AMIT10TA PO; +CLON1TAB11 PO; +DULO60CA6 PO; +ERYT500T17 PO; +GLIM1TAB2 PO; +GLIM2TAB2 PO; +IBUP-1060 PO; +LISI1TAB5 PO; +LOVA40TA2 PO; +NAPR-683 PO; -NAPR500T PO; -OXYC-323 PO; +OXYC1TAB15 PO; +PANT40TA5 PO; -TRAM100T PO; +TRAM100T30 PO
[2018-09-10 02:30] VITALS: BP 118/61
--- NOTE | 2018-09-10 02:58 | PHYS DOC ---
Past Medical History Past Medical History: Anxiety, Depression, Diabetes-Type II Additional Past Medical Histor: chronic pain issues-arthritis Past Surgical History: Cholecystectomy, Hysterectomy, Tubal ligation Additional Past Surgical Histo: DISCECTOMY Alcohol Use: None Drug Use: None Adult General Chief Complaint Chief Complaint: HEADACHE HPI HPI Patient is a 52 year old f bibawithneck painand h/a. my neck started hurting bad enough and i ended up wtih a headache. "almost every time my neck hurts i end up with a h/a too" s/p discectomy 2 years ago, persistent pain in denise neck. took pain pill this am, relieved some then came back. 930 pm gabriel took one of the pain pills, along with one extra strength tylenol. then mandi just didnt feel right. on the bottle it says oxycodone on the chart it says roxicodone. then took mirtazapine after that to help her sleep. gabriel was tghe first time she took them both at the same time. then got nauseous and lightheaded. was worried she might pass out. did not do so however. Review of Systems Review of Systems Constitutional: Denies fever or chills [] Eyes: Denies change in visual acuity, redness, or eye pain [] HENT: Denies nasal congestion or sore throat [] Respiratory: Denies cough or shortness of breath [] Cardiovascular: No additional information not addressed in HPI [] GI: Denies abdominal pain, nausea, vomiting, bloody stools or diarrhea [] : Denies dysuria or hematuria [] Musculoskeletal: Denies back pain or joint pain [] Integument: Denies rash or skin lesions [] Neurologic: Denies headache, focal weakness or sensory changes [] Endocrine: Denies polyuria or polydipsia [] All other systems were reviewed and found to be within normal limits, except as documented in this note. Current Medications Current Medications Current Medications Medications (Trade) Dose Ordered Sig/Koko Start Time Stop Time Status Last Admin Dose Admin Ketorolac Tromethamine (Toradol 15mg Vial) 15 mg 1X ONCE 09/10/18 03:15 09/10/18 03:19 DC 09/10/18 03:35 15 MG Lorazepam (Ativan) 1 mg 1X ONCE 09/10/18 03:15 09/10/18 03:19 DC 09/10/18 03:34 1 MG Allergies Allergies Allergies Coded Allergies Type Severity Reaction Last Updated Verified Penicillins Allergy Intermediate 03/10/17 Yes bupropion Allergy Intermediate 03/10/17 Yes hydrocodone Allergy Intermediate 03/10/17 Yes niacin Allergy Intermediate 03/10/17 Yes Physical Exam Physical Exam Constitutional: Well developed, well nourished, no acute distress, non-toxic appearance. [] HENT: Normocephalic, atraumatic, bilateral external ears normal, oropharynx moist, no oral exudates, nose normal. [] Eyes: PERRLA, EOMI, conjunctiva normal, no discharge. [] Neck: Normal range of motion, mild diffuse tenderness, supple, no stridor. [] Pulmonary: Normal respiratory effort no increased work of breathing no obvious chest wall trauma Abdomen: Bowel sounds normal, soft, no tenderness, no masses, no pulsatile masses. [] Skin: Warm, dry, no erythema, no rash. [] Back: No tenderness, no CVA tenderness. [] Extremities: No tenderness, no cyanosis, no clubbing, ROM intact, no edema. [] Neurologic: Alert and oriented X 3, normal motor function, normal sensory function, no focal deficits noted. [] Psychologic: Affect normal, judgement normal, mood normal. [] Current Patient Data Vital Signs Vital Signs Date Time Temp Pulse Resp B/P (MAP) Pulse Ox O2 Delivery O2 Flow Rate FiO2 09/10/18 02:30 98.2 91 16 118/61 (80) 94 Room Air 98.2 EKG EKG [] Radiology/Procedures Radiology/Procedures [] Course & Med Decision Making Course & Med Decision Making Pertinent Labs and Imaging studies reviewed. (See chart for details) []52 yo chronic neck pain and some headache. neuro intact. some lightheadedness with remeron and oxycodone together. vitals normal. pt reassured. Dragon Disclaimer Dragon Disclaimer This electronic medical record was generated, in whole or in part, using a voice recognition dictation system. Departure Departure Impression: Primary Impression: Neck pain Disposition: HOME, SELF-CARE Condition: STABLE Referrals: SRUTHI DEAL MD (PCP) Patient Instructions: Arthritis, Nonspecific NADEGE WILSON MD Sep 10, 2018 02:58
[2018-09-10] MEDS ORDERED: KETOROLAC 15 MG/ML VIAL. IV ONE (03:15)
[2018-09-10] MEDS ORDERED: LORazepam 1 MG TABLET PO ONE (03:15)
== END 2018-09-10 03:15 | disposition home or self-care (01) ==
LOC: ER 02:19
DX: M54.2 Cervicalgia (principal); R51 Headache; G89.29 Other chronic pain; E11.9 Type 2 diabetes mellitus without complications; Z88.0 Allergy status to penicillin; Z88.5 Allergy status to narcotic agent; Z88.8 Allergy status to other drugs, medicaments and biological substances
CPT/HCPCS: 96374; 99284; J1885

== ENCOUNTER 2018-09-20 21:01 | Emergency (ER) | payer OTHER ==
[~2018-09-20] VITALS: Ht 177.8 cm; Wt 102.5 kg
[2018-09-20] MEDS ORDERED: ASPIRIN CHEWABLE 81 MG TABLET. PO ONE (21:30)
[2018-09-20 21:32] LABS: BASO # 0.1 x10^3/uL (0.0-0.2); BASO % 1 % (0-3); EOS # 0.1 x10^3/uL (0.0-0.7); EOS % 1 % (0-3); HEMATOCRIT 42.4 % (36.0-47.0); HEMOGLOBIN 14.4 g/dL (12.0-15.5); LYMPH # 2.5 x10^3/uL (1.0-4.8); LYMPH % 34 % (24-48); MEAN CORPUSCULAR HEMOGLOBIN 30 pg (25-35); MEAN CORPUSCULAR HGB CONC 34 g/dL (31-37); MEAN CORPUSCULAR VOLUME 89 fL (79-100); MONO # 0.4 x10^3/uL (0.0-1.1); MONO % 5 % (0-9); NEUT # 4.3 x10^3uL (1.8-7.7); NEUT % 59 % (31-73); PLATELET COUNT 222 x10^3/uL (140-400); RED BLOOD COUNT 4.78 x10^6/uL (3.50-5.40); RED CELL DISTRIBUTION WIDTH 13.1 % (11.5-14.5); WHITE BLOOD COUNT 7.3 x10^3/uL (4.0-11.0)
[2018-09-20 21:46] LABS: CALCIUM 9.1 mg/dL (8.5-10.1); GFR 70.5; POTASSIUM 3.6 mmol/L (3.5-5.1)
[2018-09-20 21:52] LABS: ALBUMIN 3.7 g/dL (3.4-5.0); ALBUMIN/GLOBULIN RATIO 0.8 (1.0-1.7); TOTAL BILIRUBIN 0.2 mg/dL (0.2-1.0); TOTAL PROTEIN 8.2 g/dL (6.4-8.2)
--- NOTE | 2018-09-20 22:51 | PHYS DOC ---
Past Medical History Past Medical History: Anxiety, Arthritis, Depression, Diabetes-Type II, High Cholesterol, Hypertension Additional Past Medical Histor: chronic pain issues-arthritis Past Surgical History: Cholecystectomy, Hysterectomy, Tubal ligation Additional Past Surgical Histo: DISCECTOMY Alcohol Use: None Drug Use: None Adult General Chief Complaint Chief Complaint: CHEST PAIN HPI HPI Patient is a 52 year old female who presents with dull chest heaviness. She reports the pain/heaviness starting around 1920, 5 minutes after taking her mirtazapine and Klonopin. It is described as dull heaviness that she locates inferior and lateral to her left breast. She notes feeling a "head hensley" at the onset of pain along with numbness and tingling radiating to her right arm (she notes this is from a chronic neck problem). She denies diaphoresis, jaw pain, left arm pain, shortness of breath, and notes that her symptoms are similar to times she has had anxiety attacks. While in the ED she denied having anymore chest pain. In late 2017 she came in for similar symptoms and had serial ekgs, trops, and echo stress test that were negative, with an EF of 55-60%. She has a history of anxiety and was visibly anxious during the interview, noting her PCP is titrating down her klonopin. Pt has family history of heart problems, her father having a IN and her brother of an "enlarged heart." Her biggest complaint was not feeling "comfortable" and wanted to "feel relaxed for once." Pt is anxious about being able to take care of her granddaughter tomorrow morning. She reports wanting to stay the night in the hospital because she is able to sleep here and feels more relaxed. Review of Systems Review of Systems Constitutional: Denies fever or chills [] Eyes: Denies change in visual acuity, redness, or eye pain [] HENT: Denies nasal congestion or sore throat [] Respiratory: Denies shortness of breath. Admits to feeling congested with a mild productive cough. Cardiovascular: No additional information not addressed in HPI [] GI: Denies abdominal pain, nausea, vomiting, bloody stools or diarrhea [] : Denies dysuria or hematuria [] Musculoskeletal: Denies back pain or joint pain [] Integument:Multiple lesions on tibial plateau of b/l LE's, pt attributes it to her psoriasis. Neurologic: Denies headache, focal weakness or sensory changes [] Endocrine: Denies polyuria or polydipsia [] All other systems were reviewed and found to be within normal limits, except as documented in this note. Family History Family History Father , history of "heart problems", had a IN. Brother from "enlarged heart" Current Medications Current Medications Current Medications Medications (Trade) Dose Ordered Sig/Koko Start Time Stop Time Status Last Admin Dose Admin Aspirin (Children'S Aspirin) 324 mg 1X ONCE 09/20/18 21:30 09/20/18 21:31 DC 09/20/18 21:31 324 MG Lorazepam (Ativan) 1 mg 1X ONCE 09/20/18 22:15 09/20/18 22:16 DC 09/20/18 22:45 1 MG Allergies Allergies Allergies Coded Allergies Type Severity Reaction Last Updated Verified Penicillins Allergy Intermediate 03/10/17 Yes bupropion Allergy Intermediate 03/10/17 Yes hydrocodone Allergy Intermediate 03/10/17 Yes niacin Allergy Intermediate 03/10/17 Yes Physical Exam Physical Exam Constitutional: Well developed, well nourished, no acute distress, non-toxic appearance. [] HENT: Normocephalic, atraumatic, bilateral external ears normal, oropharynx moist, no oral exudates, nose normal. [] Eyes: PERRLA, EOMI, conjunctiva normal, no discharge. [] Neck: Normal range of motion, no tenderness, supple, no stridor. [] Cardiovascular:Heart rate tachycardic, regular rhythm, no murmur [] Lungs & Thorax: Bilateral breath sounds clear to auscultation [] Skin: Psoriatic lesions on b/l LE's tibial surface Back: No tenderness, no CVA tenderness. [] Extremities: No tenderness, no cyanosis, no edema. R Psychologic: Affect normal, judgement normal, anxious mood. [] Current Patient Data Vital Signs Vital Signs Date Time Temp Pulse Resp B/P (MAP) Pulse Ox O2 Delivery O2 Flow Rate FiO2 09/21/18 01:00 102 114/76 (89) 97 Room Air 09/20/18 21:02 98.9 18 98.9 Lab Values Laboratory Tests Test 09/20/18 21:20 09/21/18 00:16 White Blood Count 7.3 x10^3/uL (4.0-11.0) Red Blood Count 4.78 x10^6/uL (3.50-5.40) Hemoglobin 14.4 g/dL (12.0-15.5) Hematocrit 42.4 % (36.0-47.0) Mean Corpuscular Volume 89 fL (79-100) Mean Corpuscular Hemoglobin 30 pg (25-35) Mean Corpuscular Hemoglobin Concent 34 g/dL (31-37) Red Cell Distribution Width 13.1 % (11.5-14.5) Platelet Count 222 x10^3/uL (140-400) Neutrophils (%) (Auto) 59 % (31-73) Lymphocytes (%) (Auto) 34 % (24-48) Monocytes (%) (Auto) 5 % (0-9) Eosinophils (%) (Auto) 1 % (0-3) Basophils (%) (Auto) 1 % (0-3) Neutrophils # (Auto) 4.3 x10^3uL (1.8-7.7) Lymphocytes # (Auto) 2.5 x10^3/uL (1.0-4.8) Monocytes # (Auto) 0.4 x10^3/uL (0.0-1.1) Eosinophils # (Auto) 0.1 x10^3/uL (0.0-0.7) Basophils # (Auto) 0.1 x10^3/uL (0.0-0.2) Prothrombin Time 13.0 SEC (11.7-14.0) Prothrombin Time INR 1.0 (0.8-1.1) D-Dimer (Birgit) 0.50 ug/mlFEU (0.00-0.50) Sodium Level 136 mmol/L (136-145) Potassium Level 3.6 mmol/L (3.5-5.1) Chloride Level 99 mmol/L (98-107) Carbon Dioxide Level 27 mmol/L (21-32) Anion Gap 10 (6-14) Blood Urea Nitrogen 9 mg/dL (7-20) Creatinine 1.0 mg/dL (0.6-1.0) Estimated GFR (Cockcroft-Gault) 70.5 BUN/Creatinine Ratio 9 (6-20) Glucose Level 325 mg/dL (70-99) H Calcium Level 9.1 mg/dL (8.5-10.1) Total Bilirubin 0.2 mg/dL (0.2-1.0) Aspartate Amino Transferase (AST) 36 U/L (15-37) Alanine Aminotransferase (ALT) 48 U/L (14-59) Alkaline Phosphatase 75 U/L (46-116) Troponin I Quantitative < 0.017 ng/mL (0.000-0.055) < 0.017 ng/mL (0.000-0.055) BB-Zlm-U-Type Natriuretic Peptide 109 pg/mL (0-124) Total Protein 8.2 g/dL (6.4-8.2) Albumin 3.7 g/dL (3.4-5.0) Albumin/Globulin Ratio 0.8 (1.0-1.7) L Laboratory Tests 09/20/18 21:20 Laboratory Tests 09/20/18 21:20 EKG EKG EKG 09/20/2018 []sinus tach 119 intervals normal no STEMI similar prior dated March 09, 2017 tachycardia slightly more prominent. No STEMI Radiology/Procedures Radiology/Procedures CXR 09/20/2018: []CXR NEG ACUTE INTERPRETED BY ME. Course & Med Decision Making Course & Med Decision Making Ms. Yesi Sagastume is a 52 yo female who complained of chest pain/ heaviness. It started within minutes of taking her Mirtazipine and Klonopin this evening. She denied diaphoresis, n/v, radiation to left arm or chest, and shortness of air. While in the ED she said her chest pain/heaviness was gone and noted that she has had similar pain when experiencing anxiety attacks. In late 2016 she came to the ED with the same complaints and had serial ekgs, trops , and a stress test done all of which came back negative, and her EF was 55-60. Since she has a positive family history of heart problems, as well as a medical history of DM2, HTN, and dyslipidemia, she was given an EKG, CXR, and blood was drawn to measure trops. Her first set of trops were negative, CXR was unremarkable, and EKG revealed only sinus tachycardia. She reports having anxiety about taking care of her granddaughter tomorrow morning and notes trouble sleeping as a cause of this anxiety. Given her negative stress test in late 2016 and her HEART score of 3, she will be able to go home if her 2nd set of trops come back as negative. FINAL PLAN PT RESTED IN ER FOR THREE HOURS AND FELT MUCH BETTER. TROP NEG X TWO EKG NO ISCHEMIA DDIMER WITHIN NORMAL RANGE UPPER LIMIT NORMAL BUT LOW PRETEST PROBABILITY GIVEN NEGATIVE TROPONINS, SIMILAR PRESENTATIONSI IN PAST, NEGATIVE STRESS TEST 2016 FEEL SAFE FOR OUTPT MGMT PT AGREEABLE HAS F/U NEXT WEEK WTIH HER PMD RETURN PREC DISCUSSED IN ETAIL Yung Disclaimer Dragpiyush Disclaimer This electronic medical record was generated, in whole or in part, using a voice recognition dictation system. Departure Departure Impression: Primary Impression: Chest pain Disposition: HOME, SELF-CARE Condition: STABLE Referrals: SRUTHI DEAL MD (PCP) NADEGE WILSON MD Sep 20, 2018 22:51
[2018-09-21 01:00] VITALS: BP 114/76
--- NOTE | 2018-09-21 03:41 | RAD ---
Single view chest dated 09/20/2018: Comparison made 03/09/2017. Clinical Indication: Chest pain. Findings: Single upright portable exam of the chest was performed. Heart size and mediastinal contours are within normal limits given technique. The lungs are clear without evidence of focal consolidation. Vascular interstitium is within normal limits. Impression:: Negative portable chest. Electronically signed by: Trevon Liu MD (09/21/2018 3:38 AM) [facility]
--- NOTE | 2018-09-21 07:38 | EKG ---
[facility] [address] [place] [address] Test Date: 2018-09-20 Test Time: 21:04:42 Pat Name: GAURI GUO Department: Room: Gender: F Administrative Support Specialist: : 1965 Requested By: NADEGE WILSON Order Number: [id number] Reading MD: Fabrizio Merida MD Measurements Intervals [place] Rate: 119 P: 49 [place]: 148 QRS: 8 QRSD: 86 T: 52 QT: 314 QTc: 442 Interpretive Statements SINUS TACHYCARDIA NON-SPECIFIC ST/T CHANGES Electronically Signed On 09-24-2018 13:20:51 CDT by Fabrizio Merida MD
== END 2018-09-21 01:14 | disposition home or self-care (01) ==
LOC: ER 21:01
DX: R07.89 Other chest pain (principal); F41.9 Anxiety disorder, unspecified; R20.0 Anesthesia of skin; F32.9 Major depressive disorder, single episode, unspecified; E11.9 Type 2 diabetes mellitus without complications; E78.00 Pure hypercholesterolemia, unspecified; I10 Essential (primary) hypertension; G89.29 Other chronic pain; Z88.0 Allergy status to penicillin; Z88.5 Allergy status to narcotic agent; Z88.8 Allergy status to other drugs, medicaments and biological substances
CPT/HCPCS: 36415; 71045; 80053; 83880; 84484; 85025; 85379; 85610; 93005; 96374; 99284; J2060

== ENCOUNTER 2019-11-10 15:30 | Emergency (ER) | payer OTHER ==
[~2019-11-10] VITALS: Ht 170.2 cm; Wt 120.0 kg
[~2019-11-10 15:30] MED LIST changes: -CLON1TAB11 PO; +CLONAZEPAM1 MG PO; -GLIM1TAB2 PO; +GLIM1TAB7 PO; -GLIM2TAB2 PO; +GLIM2TAB7 PO; +LISI1TAB19 PO; +LISI1TAB20 PO; -LISI1TAB5 PO; -LISI1TAB7 PO; -PANT40TA5 PO; +PANT40TA77 PO
[2019-11-10] MEDS ORDERED: IV NORMAL SALINE 1000ML BAG 1,000 ML IV ONE (16:00)
[2019-11-10] MEDS ORDERED: ONDANSETRON PF 4 MG/2 ML VIAL. IV ONE (16:00)
[2019-11-10 16:03] LABS: BASO # 0.1 x10^3/uL (0.0-0.2); BASO % 0 % (0-3); EOS # 0.1 x10^3/uL (0.0-0.7); EOS % 1 % (0-3); HEMATOCRIT 45.8 % (36.0-47.0); HEMOGLOBIN 15.4 g/dL (12.0-15.5); LYMPH # 3.7 x10^3/uL (1.0-4.8); LYMPH % 28 % (24-48); MEAN CORPUSCULAR HEMOGLOBIN 30 pg (25-35); MEAN CORPUSCULAR HGB CONC 34 g/dL (31-37); MEAN CORPUSCULAR VOLUME 90 fL (79-100); MONO # 0.7 x10^3/uL (0.0-1.1); MONO % 5 % (0-9); NEUT # 8.6 x10^3/uL (1.8-7.7); NEUT % 66 % (31-73); PLATELET COUNT 272 x10^3/uL (140-400); RED BLOOD COUNT 5.11 x10^6/uL (3.50-5.40); RED CELL DISTRIBUTION WIDTH 13.8 % (11.5-14.5); WHITE BLOOD COUNT 13.1 x10^3/uL (4.0-11.0)
[2019-11-10 16:10] LABS: CALCIUM 8.8 mg/dL (8.5-10.1); CREATININE 1.7 mg/dL (0.6-1.0); GFR 31.4; POTASSIUM 3.3 mmol/L (3.5-5.1)
[2019-11-10 16:16] LABS: ALBUMIN 3.9 g/dL (3.4-5.0); ALBUMIN/GLOBULIN RATIO 0.9 (1.0-1.7); TOTAL BILIRUBIN 0.5 mg/dL (0.2-1.0); TOTAL PROTEIN 8.1 g/dL (6.4-8.2)
--- NOTE | 2019-11-10 16:33 | PHYS DOC ---
Past Medical History Past Medical History: Anxiety, Arthritis, Depression, Diabetes-Type II, High Cholesterol, Hypertension Additional Past Medical Histor: chronic pain issues-arthritis Past Surgical History: Cholecystectomy, Hysterectomy, Tubal ligation Additional Past Surgical Histo: DISCECTOMY Smoking Status: Never Smoker Alcohol Use: None Drug Use: None General Adult EDM: Chief Complaint: WEAKNESS/GENERALIZED HPI: HPI: Patient is a 53-year-old female with multiple medical problems including diabetes hypertension and chronic pain who presents with dizziness today. She states she thinks she took double the dose of her medicine by accident. Again she states she is not suicidal and this is purely by accident. After her medication when she tried to stand up she felt dizzy and nauseous. She denies any chest pain or shortness of breath. She called EMS because of how bad she felt they gave her some Zofran and normal saline and on arrival here she says she feels quite a bit better. She received a total of 1 L of fluid prior to the time I saw her and she says she feels better. [] Review of Systems: Review of Systems: Constitutional: Denies fever or chills. [] Eyes: Denies change in visual acuity. [] HENT: Denies nasal congestion or sore throat. [] Respiratory: Denies cough or shortness of breath. [] Cardiovascular: Denies chest pain or edema. [] GI: Reports nausea, vomiting and diarrhea she states the diarrhea is chronic though. [] : Denies dysuria. [] Musculoskeletal: Denies back pain or joint pain. [] Integument: Denies rash. [] Neurologic: Reports dizziness. [] Endocrine: Denies polyuria or polydipsia. [] Lymphatic: Denies swollen glands. [] Psychiatric: Denies depression or anxiety. [] Heart Score: Risk Factors: Risk Factors: DM, Current or recent (<one month) smoker, HTN, HLP, family history of CAD, obesity. Risk Scores: Score 0 - 3: 2.5% MACE over next 6 weeks - Discharge Home Score 4 - 6: 20.3% MACE over next 6 weeks - Admit for Clinical Observation Score 7 - 10: 72.7% MACE over next 6 weeks - Early Invasive Strategies Current Medications: Current Medications Medications (Trade) Dose Ordered Sig/Koko Start Time Stop Time Status Last Admin Dose Admin Ondansetron HCl (Zofran) 4 mg 1X ONCE 11/10/19 16:00 11/10/19 16:01 DC Sodium Chloride 1,000 ml @ 1,000 mls/hr 1X ONCE 11/10/19 16:00 11/10/19 16:59 Allergies: Allergies: Allergies Coded Allergies Type Severity Reaction Last Updated Verified Penicillins Allergy Intermediate 03/10/17 Yes bupropion Allergy Intermediate 03/10/17 Yes hydrocodone Allergy Intermediate 03/10/17 Yes niacin Allergy Intermediate 03/10/17 Yes Physical Exam: PE: Constitutional: Well developed, well nourished, no acute distress, non-toxic appearance. [] HENT: Normocephalic, atraumatic, bilateral external ears normal, oropharynx moist, no oral exudates, nose normal. [] Eyes: PERRLA, EOMI, conjunctiva normal, no discharge. [] Neck: Normal range of motion, no tenderness, supple, no stridor. [] Cardiovascular:Heart rate regular rhythm, no murmur [] Lungs & Thorax: Bilateral breath sounds clear to auscultation [] Abdomen: Bowel sounds normal, soft, no tenderness, no masses, no pulsatile masses. [] Skin: Warm, dry, no erythema, no rash. [] Back: No tenderness, no CVA tenderness. [] Extremities: No tenderness, no cyanosis, no clubbing, ROM intact, no edema. [] Neurologic: Alert and oriented X 3, normal motor function, normal sensory function, no focal deficits noted. [] Psychologic: A anxious [] Current Patient Data: Labs: Laboratory Tests Test 11/10/19 15:45 White Blood Count 13.1 x10^3/uL (4.0-11.0) H Red Blood Count 5.11 x10^6/uL (3.50-5.40) Hemoglobin 15.4 g/dL (12.0-15.5) Hematocrit 45.8 % (36.0-47.0) Mean Corpuscular Volume 90 fL (79-100) Mean Corpuscular Hemoglobin 30 pg (25-35) Mean Corpuscular Hemoglobin Concent 34 g/dL (31-37) Red Cell Distribution Width 13.8 % (11.5-14.5) Platelet Count 272 x10^3/uL (140-400) Neutrophils (%) (Auto) 66 % (31-73) Lymphocytes (%) (Auto) 28 % (24-48) Monocytes (%) (Auto) 5 % (0-9) Eosinophils (%) (Auto) 1 % (0-3) Basophils (%) (Auto) 0 % (0-3) Neutrophils # (Auto) 8.6 x10^3/uL (1.8-7.7) H Lymphocytes # (Auto) 3.7 x10^3/uL (1.0-4.8) Monocytes # (Auto) 0.7 x10^3/uL (0.0-1.1) Eosinophils # (Auto) 0.1 x10^3/uL (0.0-0.7) Basophils # (Auto) 0.1 x10^3/uL (0.0-0.2) Sodium Level 140 mmol/L (136-145) Potassium Level 3.3 mmol/L (3.5-5.1) L Chloride Level 101 mmol/L (98-107) Carbon Dioxide Level 25 mmol/L (21-32) Anion Gap 14 (6-14) Blood Urea Nitrogen 14 mg/dL (7-20) Creatinine 1.7 mg/dL (0.6-1.0) H Estimated GFR (Cockcroft-Gault) 31.4 BUN/Creatinine Ratio 8 (6-20) Glucose Level 205 mg/dL (70-99) H Calcium Level 8.8 mg/dL (8.5-10.1) Total Bilirubin 0.5 mg/dL (0.2-1.0) Aspartate Amino Transferase (AST) 29 U/L (15-37) Alanine Aminotransferase (ALT) 32 U/L (14-59) Alkaline Phosphatase 61 U/L (46-116) Total Protein 8.1 g/dL (6.4-8.2) Albumin 3.9 g/dL (3.4-5.0) Albumin/Globulin Ratio 0.9 (1.0-1.7) L Laboratory Tests 11/10/19 15:45 Laboratory Tests 11/10/19 15:45 Vital Signs: Vital Signs Date Time Temp Pulse Resp B/P (MAP) Pulse Ox O2 Delivery O2 Flow Rate FiO2 11/10/19 15:35 97.0 92 16 117/56 (76) 98 Room Air 97.0 EKG: EKG: [] Radiology/Procedures: Radiology/Procedures: [] Course & Med Decision Making: Course & Med Decision Making Pertinent Labs and Imaging studies reviewed. (See chart for details) [] Dragon Disclaimer: Dragon Disclaimer: This electronic medical record was generated, in whole or in part, using a voice recognition dictation system. Departure Departure Impression: Primary Impression: Dizziness Additional Impression: Nausea & vomiting Qualified Codes: R11.2 - Nausea with vomiting, unspecified Disposition: HOME, SELF-CARE Condition: IMPROVED Referrals: SRUTHI DEAL MD (PCP) Patient Instructions: Dizziness Additional Instructions: Return to the emergency department with any new or concerning symptoms REYES HOLDEN DO Nov 10, 2019 16:33
[2019-11-10 16:51] VITALS: BP 117/62
--- NOTE | 2019-11-11 00:56 | EKG ---
[facility] [address] [place] [address] Test Date: 2019-11-10 Test Time: 15:41:50 Pat Name: GAURI GUO Department: Room: Gender: F Landscape Specialist: : 1965 Requested By: REYES HOLDEN Order Number: [id number] Reading MD: Fabrizio Merida MD Measurements Intervals [place] Rate: 98 P: -10 [place]: 160 QRS: 0 QRSD: 94 T: 121 QT: 362 QTc: 470 Interpretive Statements SINUS RHYTHM ATRIAL PREMATURE COMPLEX(ES) NON-SPECIFIC ST/T CHANGES BASELINE ARTIFACT Electronically Signed On 11-11-2019 13:25:47 CDT by Fabrizio Merida MD
== END 2019-11-10 17:15 | disposition home or self-care (01) ==
LOC: ER 15:30
DX: R42 Dizziness and giddiness (principal); R11.2 Nausea with vomiting, unspecified; R06.02 Shortness of breath; G89.29 Other chronic pain; E11.9 Type 2 diabetes mellitus without complications; E78.00 Pure hypercholesterolemia, unspecified; I10 Essential (primary) hypertension; Z90.49 Acquired absence of other specified parts of digestive tract; Z90.710 Acquired absence of both cervix and uterus; Z98.51 Tubal ligation status; Z88.0 Allergy status to penicillin; Z88.5 Allergy status to narcotic agent; Z88.8 Allergy status to other drugs, medicaments and biological substances
CPT/HCPCS: 36415; 80053; 85025; 93005; 99284